=== PATIENT | male | born 1980 | race Caucasian/White ===

== ENCOUNTER 2021-10-12 08:06 | Emergency (ER) | payer OTHER, SELFPAY ==
--- NOTE | ~2021-10-12 | XR_ITS ---
EXAMINATION: XR wrist LT min 3V DATE: 10/12/2021 09:40 INDICATION: Left wrist injury. TECHNIQUE: 5 views of left wrist were obtained. COMPARISON: None. FINDINGS: There is an oblique fracture of distal radius involving the distal articular surface. The d istal fracture fragment demonstrates near-anatomic alignment. Ulnar styloid is normal. There is mild osteoarthritis of first carpometacarpal joint. IMPRESSION: 1. Oblique fracture of distal radius. Reviewed, dictated and finalized at location A.
--- NOTE | ~2021-10-12 | XR_ITS ---
EXAMINATION: XR ribs LT 2V w CXR 2V DATE: 10/12/2021 09:40 INDICATION: Chest injury. TECHNIQUE: Frontal and lateral views of the chest and 2 views on 4 radiographs of the left ribs were obtained. COMPARISON: None. FINDINGS: CHEST TWO VIEWS: There is no pneumonia, pleural effusion, pneumothorax. The heart size is normal. LEFT RIBS: There are fractures of left fourth-sixth ribs. There is a fracture of body of left scapula . IMPRESSION: 1. Fractures of left fourth-sixth ribs. 2. Fracture of body of left scapula. Reviewed, dictated and finalized at location A.
--- NOTE | ~2021-10-12 | CT_ITS ---
EXAMINATION: CT chest abdomen pelvis w con DATE: 10/12/2021 10:52 INDICATION: Left-sided pain TECHNIQUE: Transaxial computed tomographic images of the chest, abdomen, and pelvis were obtained aft er the administration of 100 cc of Omnipaque 350 intravenous contrast. The dose-length product (DLP) was 1525.36 mGy-cm. Automated exposure control and iterative reconstruction technique were employed. COMPARISON: Radiographs from today FINDINGS: CHEST CT: Again noted are fractures of the body of the left scapula and of the left fourth through sixth ribs. The lungs are free of focal airspace opacities. There is no pleural effusion or pneumothorax. There i s mild dependent atelectasis. The thoracic aorta appears unremarkable. No pathologically enlarged tho racic lymph nodes are identified. The heart size is normal. ABDOMEN/PELVIS CT: The liver, spleen, pancreas, gallbladder, and adrenal glands are normal. The kidneys are unremarkable . No pathologically enlarged abdominal or pelvic lymph nodes are identified. There is no free intrape ritoneal gas or evidence of bowel obstruction. A retroaortic left renal vein is noted. The appendix i s normal. IMPRESSION: 1. Fractures of the left scapula and left fourth through sixth ribs, otherwise no acute findings. Reviewed, dictated and finalized at location B.
--- NOTE | ~2021-10-12 | XR_ITS ---
EXAMINATION: XR shoulder LT min 2V DATE: 10/12/2021 09:40 INDICATION: Left shoulder injury. TECHNIQUE: 5 views of left shoulder were obtained. COMPARISON: None. FINDINGS: Bone alignment is normal. There are fractures of left fourth-sixth ribs. There is a fractur e of body of the scapula. Joint spaces are normal. IMPRESSION: 1. Fractures of left fourth-sixth ribs. 2. Fracture of body of left scapula. Reviewed, dictated and finalized at location A.
[2021-10-12 08:10] VITALS: BP 183/102; PULSE 83; RESP 16; TEMP 36.6; O2SAT 100
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
[2021-10-12] MEDS: KETOROLAC 30 MG/ML VIAL (*BKC) IV PUSH (11:44)
[2021-10-12 11:45] VITALS: BP 174/103; PULSE 75; RESP 16; O2SAT 100
[2021-10-12 12:14] VITALS: BP 167/98; PULSE 78; RESP 18; O2SAT 99
--- NOTE | 2021-10-12 13:01 | PC.NURSE ---
Dr. Leahy states he forgot to order a Tetanus shot on pt. EDP requesting pt be contacted to receive Tetanus shot. Called pt and explained to go to nearest pharmacy for Tetanus shot and the importance of receiving one. pt verbalized understanding over the phone and states he will go get one.
== END 2021-10-12 12:17 | disposition home or self-care (01) ==
PROVIDERS: Emergency Provider Emergency Medicine
DX: S22.42XA Multiple fractures of ribs, left side, initial encounter for closed fracture (principal); S42.112A Displaced fracture of body of scapula, left shoulder, initial encounter for closed fracture; S43.402A Unspecified sprain of left shoulder joint, initial encounter; S63.502A Unspecified sprain of left wrist, initial encounter; S66.912A Strain of unspecified muscle, fascia and tendon at wrist and hand level, left hand, initial encounter; S80.212A Abrasion, left knee, initial encounter; S40.212A Abrasion of left shoulder, initial encounter; S20.312A Abrasion of left front wall of thorax, initial encounter; V86.56XA Driver of dirt bike or motor/cross bike injured in nontraffic accident, initial encounter
CPT/HCPCS: 71046; 71100; 71260; 73030; 73110; 74177; 96374; 99284; J1885; Q9967